=== PATIENT | female | born 1970 | race Caucasian/White ===

== ENCOUNTER 2016-02-27 16:52 | Observation (INO) | payer OTHER ==
[~2016-02-27] VITALS: Ht 175.3 cm; Wt 70.3 kg
[~2016-02-27 16:52] MED LIST: FISH OIL CONCEN1 SGL PO; PROTONIX 40MG T40 MG PO; VITAB121000 PO; ZOFRAN ODT4 MG PO
--- NOTE | 2016-02-27 16:57 | NUR ---
PT TO ED C/O DIZZINESS SINCE WAKING UP THIS AM. STATES ITS BETTER NOW, BUT STILL THERE. ALSO C/O NAUSEA. C/O LEFT SIDED CHEST PAIN. TO EKG TEJA.
--- NOTE | 2016-02-27 17:33 | ED CARDIAC/CP/PALPITATIONS ---
History of Present Illness General Chief Complaint: Chest Pain Stated Complaint: CHEST PAIN, DIZZINESS,NAUSEA SINCE THIS AM Source: patient Exam Limitations: no limitations Vital Signs & Intake/Output Vital Signs & Intake/Output Vital Signs Date Time Temp Pulse Resp B/P Pulse O2 O2 Flow FiO2 Ox Delivery Rate 02/27 2056 98.0 64 18 116/72 95 Room Air 02/265 118/72 02/26 1942 126/74 02/26 1800 Room Air Room Air 02/26 1654 97.7 76 20 126/85 96 Room Air Allergies Coded Allergies: NO KNOWN ALLERGIES (05/20/15) Reconcile Medications Pantoprazole Sodium 40 MG TABLET. 1 TAB PO PRN GI (Reported) Triage Note: PT TO ED C/O DIZZINESS SINCE WAKING UP THIS AM. STATES ITS BETTER NOW, BUT STILL THERE. ALSO C/O NAUSEA. C/O LEFT SIDED CHEST PAIN. TO EKG ALCOVE. Triage Nurses Notes Reviewed? yes Onset: Abrupt Duration: better Timing: single episode today Quality/Severity: moderate Location: substernal Radiation: shoulders Activities at Onset: none HPI: Patient is a 45-year-old female with an unremarkable past medical history who presents to emergency room stating that at 4 AM this morning while at rest patient had acute onset of left-sided chest pressure and heaviness in which patient states that it woke her up from sleep in which patient did take a Mongolian [id number]-[id number] medication called CORVALMENT which after looking this medication up it is a vasodilator for light angina medication. Patient states that she fell asleep and woke up at approximately 9 AM and felt dizzy and nauseous. Patient states that throughout the day her left chest pain and heaviness has improved and doesn't complain of any chest pain now and only complains of mild dizziness and nausea. Denies any fever, chills, headache, chest pain arm pain jaw pain leg swelling history of DVT PE current oral contraceptive use or exogenous estrogen use,, hemoptysis, cough, shortness of breath, recent travel recent surgery. Patient does not smoke or drink alcohol or use any illicit drugs. Patient does state that she was also going to be evaluated today in which her primary care Fernando Lozano MD had advised patient to have a follow-up CT scan of a concerning image that was performed one year ago. Patient did present to [facility] outpatient radiology and obtained this prior to arrival. No vomiting has occurred. Patient denies any exertional chest pain or dyspnea on exertion (AMBER HOOKS) Past History Travel History Traveled to [place] past 21 day No Medical History Any Pertinent Medical History? see below for history Neurological: NONE EENT: NONE Cardiovascular: NONE Respiratory: NONE Gastrointestinal: GERD Hepatic: NONE Renal: NONE Musculoskeletal: NONE Psychiatric: NONE Endocrine: NONE Blood Disorders: NONE Cancer(s): NONE CLOTH FRAMER/Reproductive: OVARIAN CYST Surgical History Surgical History: OVARIAN CYST REMOVAL Psychosocial History What is your primary language Mosotho Tobacco Use: Never used ETOH Use: denies use Illicit Drug Use: denies illicit drug use Family History Hx Contributory? No (AMBER HOOKS) Review of Systems Review of Systems Constitutional: Reports: no symptoms. EENTM: Reports: no symptoms. Respiratory: Reports: see HPI. Denies: cough, short of breath. Cardiovascular: Reports: see HPI, chest pain. Denies: edema, palpitations. GI: Reports: see HPI, nausea. Genitourinary: Reports: no symptoms. Musculoskeletal: Reports: no symptoms. Skin: Reports: no symptoms. Neurological/Psychological: Reports: no symptoms. Hematologic/Endocrine: Reports: no symptoms. Immunologic/Allergic: Reports: no symptoms. All Other Systems: Reviewed and Negative (AMBER HOOKS) Physical Exam Physical Exam General Appearance: no apparent distress, alert, comfortable Cardiovascular: regular rate/rhythm Comments: Well-developed well-nourished person in no acute distress HEENT: Normal EENT exam, extraocular motion intact, no nystagmus. Pupils equally round and reactive to light and accommodation. Nose is atraumatic. External auditory canal and Tympanic membranes clear. Pharynx normal. No swelling or edema. Neck: Supple, no lymphadenopathy, normal range of motion without pain or tenderness Back: Nontender, no CVA tenderness. Cardiovascular: Regular rate and rhythms no murmurs rubs or gallops, normal JVP Respiratory: Chest nontender. No respiratory distress.breath sounds clear to auscultation bilaterally Abdomen: Soft, nontender nondistended, no appreciable organomegaly. Normal bowel sounds. No ascites Extremity: No edema, no calf tenderness to palpation, normal and equal pulses. Neuro: Alert oriented x3, motor sensory normal, Skin: No appreciable rash on exposed skin, skin is warm and dry. Psych: Mood and affect is normal, memory and judgment is normal. (MICHAEL RUEDA,AMBER) Core Measures ACS in differential dx? Yes Severe Sepsis Present: No Septic Shock Present: No (AUDREY SCHNEIDER,NATY Zapien) Progress Differential Diagnosis: AMI, aortic dissection, atrial fibrillation, cholecystitis, CHF/pulm edema, costochondritis, hyperkalemia, hypovolemia, hyperthyroid, hyperventilation, intracranial hemorrhage, musculoskeletal pain, myocarditis, pancreatitis, pericarditis, pneumonia, pneumothorax, PSVT, pulmonary embolism, PUD/GERD, PVCs/PACs, respiratory failure, rib fracture, sepsis, unstable angina, V-fib/V-Tach, WPW syndrome Plan of Care: Orders Procedure Date/time Status Heart Healthy Diet 02/27 B Active Patient Data 02/[address] in observation 02/26 220 Active Vital Signs 02/26 2207 Active Code Status 02/26 220 Active Add-on Test (ER Only) 02/26 1914 Active THYROID STIMULATING HORMONE 02/26 1748 Complete THYROXINE 02/26 1748 Complete HUMAN BETA HCG SCREEN 02/26 1748 Complete TROPONIN LEVEL 02/26 1734 Complete MAGNESIUM 02/26 1734 Complete COMPREHENSIVE METABOLIC PANEL 02/26 1734 Complete CBC WITHOUT DIFFERENTIAL 02/26 1734 Complete EKG 02/26 1653 Active Current Medications Sig/Stephanie Start time Last Medication Dose Stop Time Status Admin Ondansetron HCl 4 MG ONCE ONE 02/26 1745 CAN (Zofran) 02/26 1746 Sodium Chloride 1,000 ML BOLUS ONE 02/26 1745 CAN (Normal Saline 0.9%) 02/26 1844 Laboratory Tests 02/27/16 1748: Anion Gap 14, Estimated GFR > 60, BUN/Creatinine Ratio 17.5, Glucose 93, Calcium 10.0, Magnesium 2.0, Total Bilirubin 0.6, AST 20, ALT 25, Alkaline Phosphatase 66, Troponin I < 0.01, Total Protein 7.9, Albumin 4.9, Globulin 3.0, Albumin/ Globulin Ratio 1.6, TSH 4.010, Thyroxine (T4) 5.8, Total Beta HCG NEGATIVE, CBC w Diff NO MAN DIFF REQ, RBC 4.46, MCV 90.0, MCH 30.2, RDW 13.6, MPV 9.3, Gran % 58.3, Lymphocytes % 35.2, Monocytes % 4.8, Eosinophils % 1.1, Basophils % 0.6, Absolute Granulocytes 4.9, Absolute Lymphocytes 3.0, Absolute Monocytes 0.4, Absolute Eosinophils 0.1, Absolute Basophils 0.1, PUBS MCHC 33.6 02/27/16 1745: TSH Cancelled, Free T4 Cancelled 02/27/16 1744: Total Beta HCG Cancelled 02/27/16 1734: Urine Test Cancelled Patient currently is resting comfortably at her gurney on her phone. Patient is PERC 0 scoring and which essentially rules out pulmonary embolism. EKG was normal sinus rhythm. CT scan was ordered stat for results in which patient has stable pulmonary nodule. Patient on reevaluation states that she's had moderate left-sided chest heaviness in which sublingual nitroglycerin will be administered. Initial EKG and cardiac enzymes were unremarkable. Patient states that she had significant resolution of her chest heaviness with the sublingual nitroglycerin. 02/27/2016 8:27:37 PM reevaluation the patient, patient states that the chest heaviness had recurred in which sublingual nitroglycerin was ordered again and patient will receive nitroglycerin paste. Discussed admission with Dr. VENTURA who evaluated patient and agrees with disposition and plan (AMBER HOOKS) Diagnostic Imaging: Viewed by Me: Radiology Read. CXR Impression: no acute abnormality, no infiltrates Initial ED EKG: SINUS RHYTHM NOTED AT 74 BPM Prior EKG: unchanged Comments: PATIENT: KEISHA PATEL PRESENT AGE: 45 PATIENT ACCOUNT NO: [id number] : 68 LOCATION: [facility] ORDERING PHYSICIAN: FERNANDO LOZANO MD SERVICE DATE: 02/27/16 EXAM TYPE: CAT - CT CHEST WO IV CONTRAST EXAMINATION: CT CHEST WITHOUT CONTRAST CLINICAL INFORMATION: Follow-up for pulmonary nodule. COMPARISON: CTA chest 02/11/2015. TECHNIQUE: Multidetector volumetric CT imaging of the chest was done. Axial MIP volume rendering provided. Sagittal and coronal reformatted images were obtained. DLP: 207 mGy-cm. 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 LUNGS: Evaluation of the lung parenchyma is again notable for a 9 mm subpleural nodule along the posterior segment of the right upper lobe, not significantly changed in size relative to the prior examination (series 5, image 146). This nodule was remeasured at the workstation. No new or enlarging pulmonary nodules are identified. There is no focal airspace consolidation. The central airways are patent, without endobronchial obstructing lesions. MEDIASTINUM: Normal heart size, without significant pericardial effusion. Normal three-vessel branching of the aortic arch. Normal caliber of the thoracic aorta and main pulmonary artery. No significant mediastinal or hilar adenopathy. PLEURA: No pleural effusions or pneumothoraces. AXILLA: No significant axillary adenopathy. UPPER ABDOMEN: No acute findings within the upper abdomen. OSSEOUS STRUCTURES: No acute osseous abnormality. Normal alignment of the imaged thoracic spine. IMPRESSION: A 9 mm subpleural nodule along the posterior segment of the right upper lobe, not significantly changed in size relative to the prior examination. This nodule was remeasured at the workstation, which accounts for the reported differences in size. However, this nodule is stable in size relative to the prior exam. No new or enlarging pulmonary nodules are identified. Recommend continued attention on follow-up imaging per Fleischner Society guidelines, as detailed above. Given that the patient has already had a one-year follow-up, a follow-up chest CT may be performed in 6 months to ensure stability. This nodule should be followed for a total of 24 months to establish stability. Various management parameters for solitary pulmonary nodules are in the literature. According to the Fleischner Society, recommendations for pulmonary nodules are as follows: Nodule size > 8 mm in LOW RISK PATIENTS: Follow up CT at around 3, 9, and 24 months, dynamic contrast-enhanced CT, PET, and/or biopsy. Nodule size > 8 mm in HIGH RISK PATIENTS: Same as for low-risk patients. (AMBER HOOKS) Departure Departure Disposition: STILL A PATIENT Condition: Critical Clinical Impression Primary Impression: Angina at rest Secondary Impressions: Pulmonary nodule Referrals: MARTA DE LEON,FERNANDO Echols (PCP/Family) Departure Forms: Customer Survey General Discharge Information Admission Note Spoke With: JEFFERSON HOPE MD Observation Note Spoke With: JEFFERSON HOPE MD Physician Advisor Notified: NATY VENTURA DO Place Patient In: Non-ED OBS Care Area Rationale for Observation: My rational for observation is as follows [discussed patient with who agrees with telemetry observation for concerns of angina and rule out ACS. Patient is warranted telemetry monitoring, repeat cardiac enzymes, repeat EKG, cardiology consultation possible echocardiogram. Outpatient at this time due to recurrent chest pain with relief of nitroglycerin would be medically harmful.]. (AMBER HOOKS) Observation Note Rationale for Observation: My rational for observation is as follows . PA/TANK RIVETER Co-Sign Statement Statement: ED Attending supervision documentation- [x] I saw and evaluated the patient. I have also reviewed all the pertinent lab results and diagnostic results. I agree with the findings and the plan of care as documented in the PA's/TANK RIVETER's documentation. [] I have reviewed the ED Record and agree with the PA's/TANK RIVETER's documentation. [] Additions or exceptions (if any) to the PAs/TANK RIVETER's note and plan are summarized below: [] 02/27/16 8 pm I have seen and personally examined the patient and I agree with the PAs evaluation. She is a 45-year-old female with intermittent chest pain. The patient's pain was relieved with sublingual nitroglycerin. She's PERC negative but also had an outpatien non-contrastt CT without contrast. She is being placed in observation for serial troponins, inpatient echocardiogram, cardiology consultation (NATY VENTURA DO) Critical Care Note Critical Care Note Critical Care Time: 30-74 min (AMBER HOOKS) Critical Care Note Critical Care Time: non-applicable (NATY VENTURA DO)
--- NOTE | 2016-02-27 17:59 | NUR ---
PT IN [facility] C/C NOTED IN TRIAGE NOTE EVALUATED BY MOHIT RODRIGUEZ MEDICATED WITH ZOFRAN ODT AT THIS TIME.
[2016-02-27 18:07] LABS: ABSOLUTE BASOPHIL COUNT 0.1 /CUMM (0.0-0.2); ABSOLUTE EOSINOPHIL COUNT 0.1 /CUMM (0.0-0.7); ABSOLUTE GRANULOCYTE CT 4.9 /CUMM (1.4-6.5); ABSOLUTE MONOCYTE COUNT 0.4 /CUMM (0.10-0.60); BASOPHIL % 0.6 % (0.0-2.0); EOSINOPHIL % 1.1 % (0-5); GRANULOCYTE % 58.3 % (42.2-75.2); HEMATOCRIT 40.2 % (37-47); MEAN CORPUSCULAR HGB 30.2 PG (27.0-31.0); MEAN CORPUSCULAR HGB CONC 33.6 G/DL (33.0-37.0); MEAN PLATELET VOLUME 9.3 FL (7.4-10.4); PLATELET COUNT 224 /CUMM (130-400); RBC DISTRIBUTION WIDTH 13.6 % (11.5-14.5); RED BLOOD CELL CT 4.46 /CUMM (4.20-5.40); WHITE BLOOD CELL COUNT 8.4 /CUMM (4.8-10.8)
[2016-02-27] MEDS ORDERED: PANTOPRAZOLE SO40 M1 PO (19:12)
--- NOTE | 2016-02-27 19:24 | NUR ---
CALLED LAB SPOKE TO RAMO NO NEED FOR SECOND DRAW. THEY ARE ADDING THE EXTRA TEST TO THE BLOOD ALL READY COLLECTED.
--- NOTE | 2016-02-27 19:55 | NUR ---
PT MEDICATED WITH 1 SL NITRO PER ORDER (SEE MAR). MANUAL BP PRIOR 126/74. BP 10 MIN AFTER 118/72. PT STATES PAIN IS NOW A 2/10.
--- NOTE | 2016-02-27 20:13 | NUR ---
BP 112/78. HR 78 NSR. PT STATES SHE IS NO LONGER EXPERIENCING ANY PAIN. WILL CTM.
--- NOTE | 2016-02-27 20:27 | NUR ---
CHEST HEAVINESS REOCCURED AFTER SL NITRO. 2 SL NITRO GIVEN AND ASPIRIN (PER ORDER SEE MAR). MOHIT Mulligan AWARE. AWAITING CONTINUED ORDERS
--- NOTE | 2016-02-27 20:38 | NUR ---
1GM NITROPASTE APPLIED TO LEFT CHEST WALL. PT BP 110/68. WILL CTM.
--- NOTE | 2016-02-27 20:46 | NUR ---
IN TO EVAL PT.
--- NOTE | 2016-02-27 20:56 | NUR ---
PT DENIES ANY PAIN OR DISCOMFORT. VSS. WILL CTM.
--- NOTE | 2016-02-27 22:59 | History & Physical ---
CEDRIC DE LEON,[facility] 02/27/16 2258: General Information and HPI MD Statement: I have seen and personally examined KEISHA FERNANDEZ and documented this H&P. The patient is a 45 year old F who presented with a patient stated chief complaint of chest pressure. Source of Information: patient Exam Limitations: no limitations History of Present Illness: This is a 45-year-old lady with a past medical history of acid reflux and hiatal hernia presents to [place] ED with complaints of sudden onset of left-sided chest pressure. Patient states that around 4 AM when she had woken up she felt a sudden onset of chest pressure on left side side which radiated to her left arm and back. Patient describes the pain as stabbing and rated it a 5 out of 10. Patient states she then proceeded to taking covalamant (based on Google search, this drug happens to be a Telugu [id number] medication that has vasodilatory properties, and according to the patient is commonly use for chest pain). She then reports falling back to sleep and waking up around 9 AM with the chest pressure and pain still intact with no relief. Patient reports she then started to experience dizziness and nausea in addition to a chest pressure. Of note, patient endorses a history of vague chest pain for about 10 years which she states was believed to be nonspecific and no detail workup such as stress test or echocardiogram was ever done. Patient does deny any diaphoresis, palpitation, exertional dyspnea, recent chest trauma, pleuritic chest pain, cough, worsening of her acid reflux , upper respiratory infection, use of oral contraceptives,or family history of bleeding disorders. Patient does have a family risk factor of his father having an KS around 55. Allergies/Medications Allergies: Coded Allergies: NO KNOWN ALLERGIES (05/20/15) Home Med list Pantoprazole Sodium 40 MG TABLET.DR 1 TAB PO PRN GI (Reported) Past History Travel History Traveled to [place] past 21 day No Medical History Neurological: NONE EENT: NONE Cardiovascular: NONE Respiratory: NONE Gastrointestinal: GERD Hepatic: NONE Renal: NONE Musculoskeletal: NONE Psychiatric: NONE Endocrine: NONE Blood Disorders: NONE Cancer(s): NONE PUBLIC HEALTH CLINICAL NURSE SPECIALIST/Reproductive: OVARIAN CYST Surgical History Surgical History: OVARIAN CYST REMOVAL Past Family/Social History Psychosocial History ETOH Use: denies use Illicit Drug Use: denies illicit drug use Review of Systems Review of Systems Constitutional: Denies: chills, diaphoresis, fever, malaise, weakness. EENTM: Denies: blurred vision, double vision, visual changes, eye pain. Cardiovascular: Reports: chest pain. Denies: edema, orthopena, palpitations. Respiratory: Denies: cough, hemoptysis, orthopnea, short of breath. GI: Denies: abdominal pain, bloating, constipation. Genitourinary: Denies: dysuria, frequency, hematuria. Musculoskeletal: Denies: joint pain, joint swelling, muscle pain. Skin: Denies: jaundice, lesions. Neurological/Psychological: Denies: confusion, depressed, dementia. Hematologic/Endocrine: Reports: no symptoms. Immunologic/Allergic: Reports: no symptoms. Exam & Diagnostic Data Last 24 Hrs of Vital Signs/I&O Vital Signs Date Time Temp Pulse Resp B/P Pulse O2 O2 Flow FiO2 Ox Delivery Rate 02/26 2300 98.8 70 16 112/66 98 Room Air 02/26 2057 98.0 64 18 116/72 95 Room Air 02/26 1955 118/72 02/26 1942 126/74 02/26 1800 Room Air Room Air 02/26 1654 97.7 76 20 126/85 96 Room Air Intake & Output 02/27 0800 02/27 0000 02/26 1600 Intake Total 0 Output Total Balance 0 Intake, Oral 0 Patient 70.307 kg Weight Physical Exam General Appearance Alert, Oriented X3, Cooperative, No Acute Distress Skin No Rashes, No Breakdown, No Significant Lesion HEENT Atraumatic, PERRLA, EOMI, Mucous Membr. moist/pink Neck Supple, No JVD, No thryomegaly Lymphatic Cervical nl Cardiovascular Regular Rate, Normal S1, Normal S2, No Murmurs Lungs Clear to Auscultation, Normal Air Movement Abdomen Normal Bowel Sounds, Soft, No Tenderness Neurological Normal Gait, Normal Speech, Strength at 5/5 X4 Ext, Sensation Intact Extremities No Clubbing, No Cyanosis, No Edema, Normal Pulses, No Tenderness/ Swelling Vascular Normal Pulses, Pulses Symmetrical Last 24 Hrs of Labs/Alvino: Laboratory Tests 02/28/16 0024: Troponin I Pending 02/27/16 1748: Anion Gap 14, Estimated GFR > 60, BUN/Creatinine Ratio 17.5, Glucose 93, Calcium 10.0, Magnesium 2.0, Total Bilirubin 0.6, AST 20, ALT 25, Alkaline Phosphatase 66, Troponin I < 0.01, Total Protein 7.9, Albumin 4.9, Globulin 3.0, Albumin/ Globulin Ratio 1.6, TSH 4.010, Thyroxine (T4) 5.8, Total Beta HCG NEGATIVE, CBC w Diff NO MAN DIFF REQ, RBC 4.46, MCV 90.0, MCH 30.2, RDW 13.6, MPV 9.3, Gran % 58.3, Lymphocytes % 35.2, Monocytes % 4.8, Eosinophils % 1.1, Basophils % 0.6, Absolute Granulocytes 4.9, Absolute Lymphocytes 3.0, Absolute Monocytes 0.4, Absolute Eosinophils 0.1, Absolute Basophils 0.1, PUBS MCHC 33.6 02/27/16 1745: TSH Cancelled, Free T4 Cancelled 02/27/16 1744: Total Beta HCG Cancelled 02/27/16 1734: Urine Test Cancelled Diagnostic Data EKG Results None remarkable for any acute ischemic changes Assessment/Plan Assessment: This is a 45-year-old lady with a past medical history of acid reflux and an EGD remarkable for hiatal hernia presents with left-sided radiating chest pressure/ pain. Impression and plan #Chest pressure/pain Patient presentation of sudden onset chest pain with radiation to the back with a positive family history of father having an KS at age 55 is concerning. Even though initial troponins are negative and EKG is unremarkable for any acute KS ischemic changes, will need to rule out ACS. The new symptoms of dizziness and nausea can most likely be explained by the vasodilatory effect of the OTC medications the patient took. Patient is hemodynamically stable and saturating well with an unremarkable CTA, pulmonary embolism and aortic dissection is less likely. Other possible examination of patient's chest pressure includes abdominal causes such as biliary and hiatal hernia and acid reflux in a patient with hiatal hernia. Plan * Will admit to telemetry * Will trend serial EKG and troponins * Will obtain Lipid profile * Will consider echocardiogram * Will obtain cardiology consult * Will obtain D-dimer to rule out PE * Will obtain amylase and lipase to rule out pancreatitis/biliary cause #History of Pulmonary nodule 9mm subpleural nodule along the right upper lobe which is unchanged from previous CT. Based on guidelines, no intervention is currently needed and f/u with serial CT will need to be done on outpatient basis. #History of Acid reflux * Continue omeprazole As Ranked By This Provider Problem List: 1. Nonspecific chest pain Core Measures/Miscellaneous Acute Coronary Syndrome ACS Diagnosis: No Cerebrovascular Accident CVA/TIA Diagnosis: No Congestive Heart Failure CHF Diagnosis: No Venous Thromboembolism VTE Risk Factors: Age > 40 VTE Prophylaxis Ordered Inpt: Pharm- Lovenox No Mech VTE prophylaxis d/t: No contraindications No VTE Pharm Prophylaxis d/t: No contraindications VTE Diagnosis: No VTE Type: NONE VTE Confirmed by (Test): NONE Severe Sepsis Severe Sepsis Present: No Septic Shock Septic Shock Present: No Miscellaneous Documentation Attending Case Discussed With: JEFFERSON HOPE MD Primary Care Physician: MARTA DE LEON,JEFFERSON STONE 02/28/16 0225: Attending MD Review Statement Attending Statement Attending MD Statement: examined this patient, discuss w/resident/PA/MECHANICAL PLANNER, agreed w/resident/PA/MECHANICAL PLANNER, discussed with family, reviewed EMR data (avail), reviewed images, amended to note Attending Assessment/Plan: CC: Chest pain, nausea, dizziness PMHx: GERD, ? Thyroiditis Patient has been having chest pain, nausea, dizziness since she woke up this morning. She tried to take some medication named Korvalment and slept for some time. Chest pain persisted even after waking up. She complains as pain substernal and in her back as if somebody is stabbing from the back, constant since morning no aggravating or relieving factors. She had one such episodes in the past, associated with snow shoveling. Patient had some relief with sublingual nitroglycerin in ER, pain reappeared. Denied any exertional chest pain or PORTER orthopnea, PND. Patient denies any upper abdominal pain, no vomiting or diarrhea. No blood in stool. No loss of consciousness or recent syncope. not onOC pills. No diaphoresis. She is being followed up for nodules in her lung for which she underwent CT scan today. She was persistently having chest pain at radiology department so was suggested to go to ER. No smoking. father had CAD/ KS at age 55. Vitals: Afebrile, HR 76, no tachypnea, BP stable, saturating well on room air. On examination a O 3, no apparent distress, mild anxious, Nitropatch on chest. CVS: S1-S2, RRR. No JVD RS: Clear air entry bilaterally present no wheeze or crackles. Abdomen: Soft, NT, ND bowel sounds present. no focal neurological deficit. No leg swellings, no cough tenderness. No obvious skin rashes or inflammation. Labs: CBC, BMP, LFT, troponin, hCG in acceptable range. Imaging : CT chest without IV contrast done earlier today : A 9 mm subpleural nodule along the posterior segment of the right upper lobe, not significantly changed in size relative to the prior examination. A and P #1 atypical chest pain: Patient did not have any exertional chest pain and dyspnea in the past. Has stabbing chest pain and pain in left back, associated with nausea and dizziness. CAD risk factors positive for family Hx of CAD. Initial EKG and troponin not significant. Pain relieved by nitroglycerin transiently. Admit on telemetry, serial EKG, serial troponin, cardiology consult in a.m., 2-D echo in a.m. She has low risk factors for PE, no tachycardia or tachypnea. Rule out PE by d-dimer. Check lipase to rule out any pancreatitis. Pain management with when necessary morphine and nitroglycerin. Patient received a dose of aspirin ER, continue tomorrow. Check lipid profile. #2 patient had been following up for incidental lung nodule finding: Head CT today above-mentioned result. #3 patient had history of GERD, EGD done in Feb 2015. Continue PPI. ALIYAH GOMES 02/28/16 0817: Core Measures/Miscellaneous Cerebrovascular Accident CVA/TIA Diagnosis: No Congestive Heart Failure CHF Diagnosis: No Venous Thromboembolism VTE Risk Factors: Age > 40 VTE Prophylaxis Ordered Inpt: [facility]- [facility] d/t: No contraindications No VTE Pharm Prophylaxis d/t: No contraindications VTE Diagnosis: No VTE Type: NONE VTE Confirmed by (Test): NONE Severe Sepsis Severe Sepsis Present: No Septic Shock Septic Shock Present: No Miscellaneous Documentation Attending Case Discussed With: JEFFERSON HOPE MD Primary Care Physician: MARTA DE LEON,FERNANDO Echols Patient sees these Specialists NA Level of Patient Care: Telemetry Resident Review Statement Resident Statement: examined this patient, discussed with summer intern, agreed with summer intern, discussed with family, reviewed EMR data (avail), discussed with nursing , reviewed images Other Findings: Mrs Fernandez is a 45-year-old community lady with a PMH of GERD, ovarian cyst presented with complaints of new onset left-sided chest pain that started this morning at 4 AM, pressure sensation radiating to her upper back. She self medicated with an OTC medication from [facility] (Corvalament) frequently used for chest discomfort (vasodilatory properties). Approximately 4 hours later she woke up with dizziness and nausea no improvement in her chest pain prompting her to follow-up in the ED. She reports 2 previous episodes in the past most recently associated with shoveling snow approximately one year ago, followed up with unremarkable EKG and blood workup. ROS: Negative for exertional dyspnea, palpitations, exertional chest pain, dizziness, lower extremity swelling, PND or orthopnea. VS on admission: BP 126/85, HR 76, RR 20, SPO2 96% on RA, T 97.7 PE: RRR, normal S1/S2, no murmurs appreciated. Lungs CTA BL. Normal bowel sounds. No lower extremity swelling Pertinent labs: WBC 8.4, H&H 13.5/40.2, platelets 224, potassium 4.2, BUN/Cr 14.0, glucose 93 Serial troponins: Negative EKG: Sinus rhythm, HR 74, DE interval 156, QTC 418 CT chest: Stable 9 mm subpleural nodule right upper lung Problem list: 1. Angina 2. Lung nodules 3. GERD Plan: * Admit to telemetry for continuous document clerk * Serial EKGs and troponins * Echocardiogram to assess LVEF, RV pressure. Patient has not seen a chair trimmer. Please have patient follow-up with Dr. Rios/. If echocardiogram and troponins are negative patient may benefit from outpatient cardiac stress test * Heart healthy diet * Follow-up lipase in the a.m. * ASCVD score of 0.2%. Would defer starting a statin at this time and deferred to cardiology * Lovenox 40 mg subcutaneous * CODE STATUS: Full code
--- NOTE | 2016-02-28 00:02 | NUR ---
HOUSE STAFF IN TO EVAL
--- NOTE | 2016-02-28 02:43 | NUR ---
PT RESTING COMFORTABLY WITH REGULAR RR.
--- NOTE | 2016-02-28 04:32 | NUR ---
PT SLEEPING WITH REGULAR RR
--- NOTE | 2016-02-28 04:33 | NUR ---
NSR ON MONITOR HR 63
--- NOTE | 2016-02-28 06:04 | NUR ---
REPEAT LABS DRAWN AND SENT (1SST, 1 BLUE). PT DENIES ANY PAIN AT THIS TIME. NSR ON MONITOR 78 HR.
[2016-02-28 06:28] VITALS: BP 103/65
--- NOTE | 2016-02-28 07:10 | NUR ---
PT MEDICATED WITH PRILOSEC 40MG PO
--- NOTE | 2016-02-28 07:28 | NUR ---
ASSUMED CARE OF PT AT THIS TIME PT SIDE LYING IN ROOM 6 READING A MAGAZINE. PT DENIES CHEST PAIN. DENIES SOB. DENIES ANY COMPLAINTS AND STATES SHE "FEELS GOOD". PT MADE AWARE SHE WILL BE HAVING AN ECHO TODAY. BAGEL/CREAM CHEESE, YOGURT AND COFFEE ORDERED THROUGH DIETARY ([facility]) CALL LIGHT IN PLACE. PT WITH NO ADDITIONAL NEEDS AT THIS TIME.
--- NOTE | 2016-02-28 07:59 | PN- Housestaff ---
ANI JONES 02/28/16 0759: Subjective Follow-up For: Atypical chest pain Subjective: Patient was seen and examined this morning. Offers no complaints. Denies chest pain, SOB, nausea, vomiting, abdominal pain. VSS. No events reported. Review of Systems Constitutional: Denies: see HPI. Objective Last 24 Hrs of Vital Signs/I&O Vital Signs Date Time Temp Pulse Resp B/P Pulse O2 O2 Flow FiO2 Ox Delivery Rate 02/27 0628 96.9 77 16 103/65 96 Room Air 02/27 0605 97.6 77 16 112/60 98 Room Air 02/27 0148 98.2 77 16 115/59 97 Room Air 02/26 2300 98.8 70 16 112/66 98 Room Air 02/26 205 98.0 64 18 116/72 95 Room Air 02/26 1955 118/72 02/26 1942 126/74 Intake & Output 02/27 1600 02/27 0800 02/27 0000 Intake Total 0 Output Total Balance 0 Intake, Oral 0 Patient 155 lb 155 lb Weight Physical Exam General Appearance: Alert, Oriented X3, Cooperative, No Acute Distress Skin: No Rashes, No Breakdown, No Significant Lesion HEENT: Atraumatic, PERRLA, EOMI, Mucous Membr. moist/pink Neck: Supple, No JVD, No thryomegaly, +2 Carotid Pulse wo Bruit, No LAD Lymphatic: Axillary nl, Cervical nl Cardiovascular: Regular Rate, Normal S1, Normal S2, No Murmurs, Gallops, Rubs Lungs: Clear to Auscultation, Normal Air Movement Abdomen: Normal Bowel Sounds, Soft, No Tenderness, No Hepatospenomegaly, No Masses Neurological: Normal Speech, Strength at 5/5 X4 Ext, Normal Tone, Sensation Intact, Cranial Nerves 3-12 NL, Reflexes 2+ Extremities: No Clubbing, No Cyanosis, No Edema, Normal Pulses, No Tenderness/ Swelling Vascular: Normal Pulses, Pulses Symmetrical Breasts: Breast appear nl, No breast discharge, No breast masses Current Medications: Current Medications Sig/Stephanie Start time Last Medication Dose Route Stop Time Status Admin Acetaminophen 650 MG Q6P PRN 02/27 14 DCD PO Aspirin 0 .STK-MED ONE 02/26 2023 DC PO Aspirin 325 MG ONCE ONE 02/26 2014 DC 02/26 PO 02/26 Enoxaparin Sodium 40 MG DAILY 02/27 1000 DCD 02/27 SC 1050 Nitroglycerin 0 .STK-MED ONE 02/26 2031 DC TOP Nitroglycerin 1 GM ONCE ONE 02/26 2029 DC 02/26 TOP 02/26 Nitroglycerin 0.4 MG ONCE ONE 02/26 2014 DC 02/26 SL 02/26 Nitroglycerin 0 .STK-MED ONE 02/26 1929 DC SL Nitroglycerin 0.4 MG ONCE ONE 02/26 190 DC 02/26 SL 02/26 Omeprazole 0 .STK-MED ONE 02/27 0706 DC PO Omeprazole 40 MG DAILY AC 02/27 0700 DCD 02/27 PO 0710 Oxycodone HCl 10 MG Q6P PRN 02/27 0015 DCD PO Oxycodone/ 1 TAB Q6P PRN 02/27 0015 DCD Acetaminophen PO Last 24 Hrs of Lab/Alvino Results Last 24 Hrs of Labs/Mics: Laboratory Tests 02/28/16 0602: Anion Gap 11, Estimated GFR > 60, BUN/Creatinine Ratio 25.0, Troponin I < 0.01, Triglycerides 44, Cholesterol 134, LDL Cholesterol, Calc 37 L, HDL Cholesterol 89 H, Cholesterol/HDL Ratio 2, Lipase 103, D-Dimer < 200 02/28/16 0024: Troponin I < 0.01 Assessment/Plan Assessment: This is a 45-year-old lady with a past medical history significant for acid reflux, remote history of thrombocytopenia improved after giving to her child 18 years ago and an EGD remarkable for hiatal hernia presented with left- sided radiating chest pressure/pain. Problem list/plan #Chest pressure/pain: Troponins were negative and EKGs did not show any acute changes. D-dimer negative, lipid profile within normal limit, lipase normal, thyroid function tests normal. Patient was seen by cardiology, Dr. Finley who does not believe that patient's symptoms were cardiac related. His recommendation, echocardiogram and stress test can be done as outpatient. There was no suspicion for cardiac ischemia; Of note, patient mentioned that she has not been taking her home medication of pantoprazole regularly even though she experienced occasional reflux symptoms. She was instructed to take the above medication as reflux symptoms can sometimes manifest as chest discomfort. we'll discharge the patient with instructions to follow-up outpatient with her PCP and cardiology to schedule stress test and echocardiogram. Patient to continue her home medication of pantoprazole as outpatient. She has been following up as outpatient regarding her pulmonary nodules since 2014. DVT prophylaxis with subcutaneous Lovenox Patient is full code Problem List: 1. Chest pain Pain Ratin Pain Location: NA Pain Goal: Remain pain free Pain Plan: Tylenol PRN Tomorrow's Labs & Rationales: None DELIA DE LEON,AMOL 02/28/16 1315: Attending MD Review Statement Attending Statement Attending MD Statement: examined this patient, discuss w/resident/PA/DRILL RIG OPERATOR HELPER, agreed w/resident/PA/DRILL RIG OPERATOR HELPER, reviewed EMR data (avail), discussed with nursing Attending Assessment/Plan: 45-year-old female with past medical history of GERD here with chest pain. I saw and examined the patient. She is chest pain-free and I spoke to Dr. Justin Subramanian and the house staff. Given that she is actively menopausal and chest pain-free and had a very atypical history we are going to discharge her from the ER. She has Dr. Justin Finley's office number and I stressed close follow-up outpatient echo and stress test. We have no clinical suspicion for cardiac ischemia at this point so we are sending her out on protonix and outpatient f/u
--- NOTE | 2016-02-28 09:02 | NUR ---
BREAKFAST GIVEN PER REQUEST
--- NOTE | 2016-02-28 09:32 | Cons- Cardiology ---
General Information and HPI Consulting Request Date of Consult: 02/28/16 Requested By: JEFFERSON HOPE MD Reason for Consult: Chest pain Source of Information: patient, old records Exam Limitations: no limitations History of Present Illness: The following HPI was obtained from the resident's note. This is a 45-year-old lady with a past medical history of acid reflux and hiatal hernia presents to [facility] with complaints of sudden onset of left-sided chest pressure. Patient states that around 4 AM when she had woken up she felt a sudden onset of chest pressure on left side side which radiated to her left arm and back. Patient describes the pain as stabbing and rated it a 5 out of 10. Patient states she then proceeded to taking covalamant (based on Google search, this drug happens to be a Turkmen [id number] medication that has vasodilatory properties, and according to the patient is commonly use for chest pain). She then reports falling back to sleep and waking up around 9 AM with the chest pressure and pain still intact with no relief. Patient reports she then started to experience dizziness and nausea in addition to a chest pressure. Of note, patient endorses a history of vague chest pain for about 10 years which she states was believed to be nonspecific and no detail workup such as stress test or echocardiogram was ever done. Patient does deny any diaphoresis, palpitation, exertional dyspnea, recent chest trauma, pleuritic chest pain, cough, worsening of her acid reflux , upper respiratory infection, use of oral contraceptives,or family history of bleeding disorders. Patient does have a family risk factor of his father having an FL around 55. X The patient tells me she has had this left-sided chest discomfort from 4 AM 24 hours prior continuing into admission but doesn't have it now. The pain waxed and waned but mostly was on rather than off. This did not interfere with her ability to function. Prior to that there was no unusual shortness of breath or chest discomfort on exertion. Allergies/Medications Allergies: Coded Allergies: NO KNOWN ALLERGIES (05/20/15) Home Med List: Pantoprazole Sodium 40 MG TABLET.DR 1 TAB PO PRN GI (Reported) Current Medications: Current Medications Sig/Stephanie Start time Last Medication Dose Route Stop Time Status Admin Acetaminophen 650 MG Q6P PRN 02/27 14 AC PO Aspirin 0 .STK-MED ONE 02/26 2023 DC PO Aspirin 325 MG ONCE ONE 02/26 2014 DC 02/26 PO 02/26 Enoxaparin Sodium 40 MG DAILY 02/27 1000 AC SC Nitroglycerin 0 .STK-MED ONE 02/26 2031 DC TOP Nitroglycerin 1 GM ONCE ONE 02/26 2029 DC 02/26 TOP 02/26 Nitroglycerin 0.4 MG ONCE ONE 02/26 2014 DC 02/26 SL 02/26 Nitroglycerin 0 .STK-MED ONE 02/26 1929 DC SL Nitroglycerin 0.4 MG ONCE ONE 02/26 1900 DC 02/26 SL 02/26 190 1954 Omeprazole 0 .STK-MED ONE 02/27 0706 DC PO Omeprazole 40 MG DAILY AC 02/27 0700 AC 02/27 PO 0710 Ondansetron HCl 4 MG ONCE ONE 02/26 1800 DC 02/26 PO 02/26 1801 1759 Ondansetron HCl 0 .STK-MED ONE 02/26 1758 DC PO Ondansetron HCl 4 MG ONCE ONE 02/26 1745 CAN IV 02/26 1746 Oxycodone HCl 10 MG Q6P PRN 02/27 0015 AC PO Oxycodone/ 1 TAB Q6P PRN 02/27 0015 AC Acetaminophen PO Sodium Chloride 1,000 ML BOLUS ONE 02/26 1745 CAN IV 02/26 1844 Review of Systems Review of Systems Constitutional: Denies: no symptoms. EENTM: Denies: no symptoms. Cardiovascular: Reports: see HPI. Respiratory: Denies: no symptoms. GI: Denies: no symptoms. Genitourinary: Denies: no symptoms. Musculoskeletal: Denies: no symptoms. Skin: Denies: no symptoms. Neurological/Psychological: Denies: no symptoms. Hematologic/Endocrine: Denies: no symptoms. Immunologic/Allergic: Denies: no symptoms. 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 Surgical History Surgical History: OVARIAN CYST REMOVAL Psychosocial History ETOH Use: denies use Illicit Drug Use: denies illicit drug use Exam & Diagnostic Data Vital Signs and I&O Vital Signs Date Time Temp Pulse Resp B/P Pulse O2 O2 Flow FiO2 Ox Delivery Rate 02/27 0628 96.9 77 16 103/65 96 Room Air 02/27 0605 97.6 77 16 112/60 98 Room Air 02/27 0148 98.2 77 16 115/59 97 Room Air 02/26 2300 98.8 70 16 112/66 98 Room Air 02/26 2057 98.0 64 18 116/72 95 Room Air 02/26 1955 118/72 02/26 1942 126/74 02/26 1800 Room Air Room Air 02/26 1654 97.7 76 20 126/85 96 Room Air Intake & Output 02/27 0802/27 0000 02/26 1600 02/26 0000 Intake Total 0 Output Total Balance 0 Intake, Oral 0 Patient 155 lb Weight Physical Exam: On general exam she appeared comfortable laying in bed without any complaints Head normocephalic atraumatic Eyes sclera anicteric conjunctiva showed no pallor extraocular muscles were normal Neck no jugular venous distention no thyroid masses no palpable nodes Chest lungs were clear bilaterally Heart regular rhythm without murmurs Abdomen soft no organomegaly bowel sounds normal Extremities no clubbing cyanosis or pedal edema Neurological no gross motor or sensory deficits Assessment/Plan Assessment/Plan In summary this 45-year-old female has been admitted with atypical chest discomfort. She is a premenopausal female without history of cigarette smoking and therefore carries a low pretest probability for coronary artery disease. Her troponins are negative and electrocardiograms are normal. With the duration of her symptoms lasting for several hours and negative troponin and EKG I doubt this would be cardiac related. Her d-dimer is negative. She is up appears comfortable and without any symptoms. Although echocardiogram has been ordered if this cannot be done in an appropriate timeframe for discharge I believe she can have an echo clamp and a stress test as outpatient. There are nearly 30 patients waiting in the emergency room on hold. The hospital capacity has been stretched. Therefore if echocardiogram cannot done in my clinical judgment I believe the patient can be discharged and have a echocardiogram and a stress test as an outpatient. I discussed with the patient and she appears comfortable with that. Consult Acknowledgment - Thank you for your consult request.
--- NOTE | 2016-02-28 09:35 | Patient Discharge Instructions ---
Discharge Instructions General Discharge Information You were seen/treated for: Chest discomfort Special Instructions: -Please follow up with your PCP within a week of discharge. -Please make an appointment to see Design Technology Professor, Dr. Mejia within a week of discharge and have Stress test and echocardiogram done as outpatient. -Please return if your symptoms not improve/worsen. Diet Continue normal diet: Yes Activity Additional ACTIVITY Info: As tolerated Acute Coronary Syndrome Inclusion Criteria At DC or during hospital stay patient has or had the following: ACS DIAGNOSIS No Discharge Core Measures Meds if any: Prescribed or Continued at Discharge Meds if any: NOT Prescribed or Continued at Discharge Congestive Heart Failure Inclusion Criteria At DC or during hospital stay patient has or had the following: CHF DIAGNOSIS No Discharge Core Measures Meds if any: Prescribed or Continued at Discharge Meds if any: NOT Prescribed or Continued at Discharge Cerebrovascular accident Inclusion Criteria At DC or during hospital stay patient has or had the following: CVA/TIA Diagnosis No Discharge Core Measures Meds if any: Prescribed or Continued at Discharge Meds if any: NOT Prescribed or Continued at Discharge Venous thromboembolism Inclusion Criteria VTE Diagnosis No VTE Type NONE VTE Confirmed by (Test) NONE Discharge Core Measures - Per Current guidelines, there needs to be overlap - treatment for the first 5 days of Warfarin therapy. - If discharged on Warfarin prior to 5 days of - overlap therapy, the patient will need to be - assessed for post discharge needs including - *Post discharge parental anticoagulation - *Warfarin and/or parental anticoagulation education - *Follow up date to check INR post discharge At least 5 days overlap therapy as Inpatient No Meds if any: Prescribed or Continued at Discharge Note: Overlap Therapy is Warfarin and Anticoagulant Meds if any: NOT Prescribed or Continued at Discharge
--- NOTE | 2016-02-28 10:50 | NUR ---
PT MEDICATED WITH LOVENOX PER ORDER AT THIS TIME.
--- NOTE | 2016-02-28 11:56 | NUR ---
IV D/C, PT GIVEN DISCHARGE INSTRUCTIONS AND DISCHARGED HOME.
--- NOTE | 2016-02-28 18:33 | Event Note ---
Event Note Event Note: I personally called Ms. Jayda Fernandez at [phone] and discussed at length regarding her pulmonary nodules; they were initially diagnosed in January 2015, and the patient was instructed to follow up yearly for CAT scan of chest and toward the size of nodules by her previous caregivers. She was already updated regarding the findings of her CAT scan in 02/27/2016 that's no new or enlarging pulmonary nodules were identified. I highlighted the importance of her following up for yearly CT scan as outpatient. She expressed understanding and was agreeable.
== END 2016-02-28 11:54 ==
LOC: ERH 16:52 → ERHI 22:08
PROVIDERS: Internal Medicine; Physician Assistant; ADMIT Internal Medicine
DX: R07.89 Other chest pain (principal); K21.9 Gastro-esophageal reflux disease without esophagitis; R91.1 Solitary pulmonary nodule
CPT/HCPCS: 6090; 81025; 82436; 93005; 93010; 96372; G0378; J1650; J3101; J3490